=== PATIENT | female | born 1985 | race African-American/Black ===

== ENCOUNTER 2019-06-01 06:32 | Emergency (ER) | payer SELFPAY ==
[2019-06-01] MEDS ORDERED: KETOROLAC TROMETHAMINE INJ/PF 30 MG/1 ML SDV IV ONE (07:37)
--- NOTE | 2019-06-01 07:39 | ER Document Report ---
ED Medical Screen (RME) - General Chief Complaint: Abdominal Pain Stated Complaint: ABDOMINAL PAIN Time Seen by Provider: 06/01/19 07:33 Primary Care Provider: CHRIS BUSTILLOS MD [Primary Care Provider] - Follow up as needed Notes: 34-year-old female chief complaint of lower abdominal/pelvic pain worsening over the past week, she does have vaginal discharge. She states she is concerned she has an STD and PID. She reports chills 2 days ago but none today. She also has some pain in the right upper abdomen. She denies vomiting. She denies any abdominal surgeries. LMP about a week ago. TRAVEL OUTSIDE OF THE [place] IN LAST 30 DAYS: No - Related Data Allergies/Adverse Reactions: No Known Allergies Allergy (Verified 06/01/19 06:34) Past Medical History - Social History Chew tobacco use (# tins/day): No Frequency of alcohol use: Occasional Drug Abuse: Marijuana Renal/ Medical History: Denies: Hx Peritoneal Dialysis Physical Exam - Vital signs Vitals: Temp Pulse Resp BP Pulse Ox 98.2 F 86 20 111/64 100 06/01/19 06:35 06/01/19 06:35 06/01/19 06:35 06/01/19 06:35 06/01/19 06:35 - Abdominal Tenderness: Tender - Tender in the general pelvic area with some wincing but no severe guarding. General right upper quadrant and epigastric tenderness which is very mild. Otherwise unremarkable abdomen. Course - Re-evaluation Re-evalutation: I have greeted and performed a rapid initial assessment of this patient. A comprehensive ED assessment and evaluation of the patient, analysis of test results and completion of the medical decision making process will be conducted by additional ED providers. - Vital Signs Vital signs: Temp Pulse Resp BP Pulse Ox 98.2 F 86 20 111/64 100 06/01/19 06:35 06/01/19 06:35 06/01/19 06:35 06/01/19 06:35 06/01/19 06:35 Doctor's Discharge - Discharge Referrals: CHRIS BUSTILLOS MD [Primary Care Provider] - Follow up as needed
[2019-06-01 08:06] LABS: ABSOLUTE BASOPHILS # (AUTO) 0.1 10^3/uL (0.0-0.2); ABSOLUTE EOSINOPHILS # (AUTO) 0.2 10^3/uL (0.0-0.6); ABSOLUTE LYMPHOCYTES (AUTO) 2.1 10^3/uL (0.5-4.7); ABSOLUTE NEUT (AUTO) 8.7 10^3/uL (1.7-8.2); BASOPHILS % (AUTO) 0.5 % (0-2); EOSINOPHILS % (AUTO) 1.3 % (0-6); HEMATOCRIT 36.9 % (36.0-47.0); HEMOGLOBIN 12.4 g/dL (12.0-15.5); LYMPHOCYTES % (AUTO) 17.7 % (13-45); MEAN CORPUSCULAR HEMOGLOBIN 31.7 pg (27.0-33.4); MEAN CORPUSCULAR HGB CONC 33.5 g/dL (32.0-36.0); MEAN CORPUSCULAR VOLUME 95 fl (80-97); MONOCYTES % (AUTO) 8.5 % (3-13); PLATELET COUNT 345 10^3/uL (150-450); RED CELL DISTRIBUTION WIDTH 12.6 % (11.5-14.0); TOTAL CELLS COUNTED % (AUTO) 100 %; WHITE BLOOD COUNT 12.1 10^3/uL (4.0-10.5)
[2019-06-01 08:09] LABS: APPEARANCE,URINE CLOUDY; BILIRUBIN,URINE NEGATIVE (NEGATIVE); COLOR,URINE DARK YELLOW; GLUCOSE, URINE NEGATIVE (NEGATIVE); KETONES,URINE 20 mg/dL (NEGATIVE); LEUKOCYTE ESTERASE,URINE LARGE (NEGATIVE); NITRITE,URINE NEGATIVE (NEGATIVE); PROTEIN,URINE 30 mg/dL (NEGATIVE); URINE SPECIFIC GRAVITY 1.026
[2019-06-01 08:19] LABS: ALBUMIN 4.1 g/dL (3.5-5.0); ALKALINE PHOSPHATASE 84 U/L (38-126); ANION GAP 10 (5-19); ASPARTATE AMINO TRANSFERASE 19 U/L (14-36); BILIRUBIN,DIRECT 0.2 mg/dL (0.0-0.4); BILIRUBIN,TOTAL 0.5 mg/dL (0.2-1.3); BLOOD UREA NITROGEN 7 mg/dL (7-20); CALCIUM 9.3 mg/dL (8.4-10.2); CARBON DIOXIDE 27 mmol/L (22-30); CHLORIDE 102 mmol/L (98-107); GLUCOSE 91 mg/dL (75-110); POTASSIUM 3.7 mmol/L (3.6-5.0); TOTAL PROTEIN 7.2 g/dL (6.3-8.2)
--- NOTE | 2019-06-01 09:24 | ER Document Report ---
ED General - General Chief Complaint: Abdominal Pain Stated Complaint: ABDOMINAL PAIN Time Seen by Provider: 06/01/19 07:33 Primary Care Provider: CHRIS BUSTILLOS MD [ACTIVE STAFF] - Follow up as needed TRAVEL OUTSIDE OF THE [place] IN LAST 30 DAYS: No - HPI Notes: Patient is a 34-year-old female who presents emergency department for evaluation of cramping lower abdominal pain. She states she finished menstruation last week, but she is continued to have significant cramps. She also complains of a foul-smelling vaginal discharge. This is similar to when she had gonorrhea in the past. Patient also notes that she had some pain in her right upper abdomen, lower chest. It was anterior. She states is worsened with cough, but states is not really coughing. She denies any shortness of breath. She has had some chills, but no norberto fevers to her knowledge. No nausea or vomiting. She had one episodes of diarrhea 2 days ago, but has had normal bowel movements since then. She denies any urinary symptoms. - Related Data Allergies/Adverse Reactions: No Known Allergies Allergy (Verified 06/01/19 06:34) Past Medical History - General Information source: Patient - Social History Smoking Status: Current Every Day Smoker Chew tobacco use (# tins/day): No Frequency of alcohol use: Occasional Drug Abuse: Marijuana Family History: Reviewed & Not Pertinent Patient has suicidal ideation: No Patient has homicidal ideation: No Renal/ Medical History: Denies: Hx Peritoneal Dialysis Review of Systems - Review of Systems Constitutional: See HPI EENT: No symptoms reported Cardiovascular: See HPI Respiratory: See HPI Gastrointestinal: See HPI Genitourinary: No symptoms reported Female Genitourinary: See HPI Musculoskeletal: No symptoms reported Hematologic/Lymphatic: No symptoms reported Physical Exam - Vital signs Vitals: Temp Pulse Resp BP Pulse Ox 98.2 F 86 20 111/64 100 06/01/19 06:35 06/01/19 06:35 06/01/19 06:35 06/01/19 06:35 06/01/19 06:35 - Notes Notes: Vital signs reviewed, please refer to chart. Head is normocephalic, atraumatic. Pupils equal round, reactive to light. Neck is supple without meningismus. Heart is regular rate and rhythm. Lungs are clear to auscultation bilaterally. Chest wall is nontender. No chest wall changes, no skin changes, chest wall excursion is equal bilaterally. Abdomen is soft, minimal pelvic tenderness without rebound or guarding, normoactive bowel sounds throughout. Extremities without cyanosis, clubbing. Posterior calves are nontender. Peripheral pulses are equal. Skin is warm and dry. Patient is awake, alert, neurological exam is nonfocal.\ Pelvic exam performed with RN present in room. Patient has a moderate amount of yellow-green discharge in the vaginal vault. Cervix is closed, nonfriable. She does have some mild cervical motion tenderness. No palpable adnexal masses. Course - Re-evaluation Re-evalutation: 06/01/19 09:37 Patient presents emergency department for evaluation. On physical exam her findings are most consistent with an STD. She has a history of gonorrhea. She will be treated empirically for gonorrhea and chlamydia. Because of patient's level of discomfort with the speculum in place, direct endocervical swabs were not obtained. Again she will be treated empirically regardless, and the urine PCR is pending. Patient is amenable to this plan. 06/01/19 10:54 Urine PCR did actually come back prior to her discharge. Patient is positive for chlamydia. Will treat for PID as decided earlier. Patient is amenable to this plan. - Vital Signs Vital signs: Temp Pulse Resp BP Pulse Ox 97.7 F 78 20 102/56 L 100 06/01/19 09:21 06/01/19 09:21 06/01/19 06:35 06/01/19 09:21 06/01/19 09:21 - Laboratory Result Diagrams: 06/01/19 07:45 06/01/19 07:45 Laboratory results interpreted by me: 06/01/19 06/01/19 06/01/19 07:45 07:45 07:45 WBC 12.1 H Absolute Neutrophils 8.7 H Creatinine 0.48 L Lipase 16.0 L Urine Protein 30 H Urine Ketones 20 H Urine Blood MODERATE H Urine Urobilinogen 2.0 H Ur Leukocyte Esterase LARGE H Chlamydia DNA (PCR) 06/01/19 07:45 WBC Absolute Neutrophils Creatinine Lipase Urine Protein Urine Ketones Urine Blood Urine Urobilinogen Ur Leukocyte Esterase Chlamydia DNA (PCR) DETECTED H Discharge - Discharge Clinical Impression: Chlamydia, Pelvic inflammatory disease Condition: Stable Disposition: HOME, SELF-CARE Instructions: Chlamydia ([facility]) Additional Instructions: Take all the antibiotic as prescribed until it is gone. Follow-up with gynecol ogy in the next week or 2. Practice safe sex. Return to the emergency department with worsening or new concerning symptoms of any sort. Referrals: CHRIS BUSTILLOS MD [ACTIVE STAFF] - Follow up as needed
[2019-06-01 09:35] LABS: CHLAM PCR DETECTED (NOT DETECT)
[2019-06-01] MEDS ORDERED: CEFTRIAXONE INJ 250 MG VIAL IV ONE (09:38)
[2019-06-01] MEDS ORDERED: DOXYCYCLINE HYCLATE 100 MG TABLET PO ONE (09:38)
[2019-06-01 09:56] LABS: BACTERIA (WET MOUNT) 4+ BACTERIA SEEN; RBCS (WET MOUNT) 1+ RBCS SEEN; T.VAGINALIS (WET MOUNT) NO TRICHOMONAS SEEN; WBCS (WET MOUNT) 3+ WBCS SEEN; YEAST (WET MOUNT) NO YEAST SEEN
[2019-06-01 11:04] VITALS: BP 108/75
== END 2019-06-01 11:06 | disposition home or self-care (01) ==
LOC: ER 06:32
DX: A56.11 Chlamydial female pelvic inflammatory disease (principal); R10.30 Lower abdominal pain, unspecified; F17.200 Nicotine dependence, unspecified, uncomplicated
CPT/HCPCS: 99284; 96375; 96365; 36415; 87210; 83690; 85025; 81025; 80053; 81001; 87491; 87591; J1885; J0696